=== PATIENT | male | born 1965 | race Caucasian/White ===

== ENCOUNTER → 2018-06-07 | Outpatient (CLI) | payer OTHER | END | disposition home or self-care (01) | LOC: CFH 09:01 → EDSEX 09:01 | PROVIDERS: ATTEND Internal Medicine | DX: J84.89 Other specified interstitial pulmonary diseases (principal); R59.1 Generalized enlarged lymph nodes | CPT/HCPCS: 71250 ==

== ENCOUNTER 2019-01-08 09:01 | Outpatient (CLI) | payer OTHER ==
[2019-01-08 09:24] LABS: ALANINE AMINOTRANSFERASE 24 U/L (12-78); ALBUMIN 4.2 g/dL (3.4-5.0); ANION GAP 4 mmol/L (5-15); BILIRUBIN, DIRECT 0.2 mg/dL (0.1-0.2); CALCIUM 8.5 mg/dL (8.5-10.1); CHLORIDE 106 mmol/L (98-107)
[2019-01-08 09:34] LABS: ALKALINE PHOSPHATASE 73 U/L (45-117); BILIRUBIN,TOTAL 0.7 mg/dL (0.2-1.0); TOTAL PROTEIN 7.2 g/dL (6.4-8.2)
[2019-01-08 15:44] LABS: CHOLESTEROL, TOTAL 179 mg/dL (140-239); TRIGLYCERIDES 78 mg/dL (50-200); VLDL CHOLESTEROL 16 mg/dL (0-25)
[2019-01-08 15:47] LABS: CHOL/HDL RATIO 3.8; HDL CHOL % 26 % (26-37); HDL CHOLESTEROL (DIRECT) 47 mg/dL (40-60); LDL CHOLESTEROL,CALCULATED 116 mg/dL (54-169); LDL/HDL RATIO 2.5 (0.5-3.0)
== END 2019-01-08 23:59 | disposition home or self-care (01) ==
LOC: LAB 09:01
PROVIDERS: ATTEND Nurse Practitioner
DX: Z00.00 Encounter for general adult medical examination without abnormal findings (principal); J84.9 Interstitial pulmonary disease, unspecified; I10 Essential (primary) hypertension; Z12.5 Encounter for screening for malignant neoplasm of prostate
CPT/HCPCS: 36415; 80053; 80061; 82248; 84153; 84443

== ENCOUNTER → 2019-03-09 | Outpatient (CLI) | payer OTHER | END | disposition home or self-care (01) | LOC: LAB 17:07 | PROVIDERS: ATTEND Nurse Practitioner | DX: R06.02 Shortness of breath (principal); R09.02 Hypoxemia; R05 Cough | CPT/HCPCS: 80323; G0480 ==

== ENCOUNTER → 2019-03-12 | Outpatient (CLI) | payer OTHER | END | disposition home or self-care (01) | LOC: CFH 09:35 | PROVIDERS: ATTEND Nurse Practitioner | DX: I08.8 Other rheumatic multiple valve diseases (principal); J84.112 Idiopathic pulmonary fibrosis | CPT/HCPCS: 93306 ==

== ENCOUNTER → 2019-10-23 | Outpatient (CLI) | payer OTHER ==
[2019-10-30 09:32] LABS: CRYPTOSPORIDIUM ANTIGEN Negative (Negative)
[2019-10-30 09:55] LABS: CLOSTRIDIUM DIFFICILE ANTIGEN NEGATIVE; CLOSTRIDIUM DIFFICILE TOXIN NEGATIVE (Negative)
== END | disposition home or self-care (01) ==
LOC: LAB 11:01
PROVIDERS: ATTEND Internal Medicine
DX: R19.7 Diarrhea, unspecified (principal)
CPT/HCPCS: 87046; 87427

== ENCOUNTER 2020-03-03 10:12 | Outpatient (CLI) | payer OTHER | END 2020-03-03 23:59 | disposition home or self-care (01) | LOC: LAB 10:12 | PROVIDERS: ATTEND Family Medicine | DX: M10.9 Gout, unspecified (principal) | CPT/HCPCS: 36415; 84550 ==

== ENCOUNTER → 2020-03-03 | Outpatient (CLI) | payer OTHER | END | disposition home or self-care (01) | LOC: RAD 08:50 | PROVIDERS: ATTEND Nurse Practitioner Family | DX: N43.40 Spermatocele of epididymis, unspecified (principal); J84.9 Interstitial pulmonary disease, unspecified | CPT/HCPCS: 71250; 76870 ==